=== PATIENT | male | born 1945 | race Caucasian/White ===

== ENCOUNTER 2017-09-11 07:30 | Inpatient (IN) | payer MEDICARE ==
[2017-09-12] MEDS ORDERED: fentaNYL 100 MCG/2 ML SDV ONE (07:33)
[2017-09-12] MEDS ORDERED: Propofol 200 MG/20 ML SDV ONE ×2 (07:33→13:02)
[2017-09-12] MEDS ORDERED: Midazolam 1 MG/ML 2 ML SDV ONE (07:33)
[2017-09-12] MEDS ORDERED: Gabapentin 300 MG Cap PO ONE (09:30)
[2017-09-12] MEDS ORDERED: Scopolamine 1.5 MG Transdermal Patch TOP SCH (09:30)
[2017-09-12] MEDS ORDERED: Gentamicin 40 MG/ML 2 ML Vial ONE (09:42)
[2017-09-12] MEDS ORDERED: Povidone-Iodine 10% Soln 118.25 ML Bottle ONE (09:43)
[2017-09-12] MEDS ORDERED: Lactated Ringers 1,000 ML IV SCH (10:00)
[2017-09-12] MEDS ORDERED: ceFAZolin 2 GM in Sodium Chloride 0.9% 50 ML IV ONE (10:00)
[2017-09-12] MEDS ORDERED: Ketamine 500 MG/5 ML MDV IV ONE (10:45)
[2017-09-12] MEDS ORDERED: Tranexamic Acid 1,000 MG in Sodium Chloride 0.9% 50 ML IV SCH (10:45)
[2017-09-12] MEDS ORDERED: Ropivacaine 49.25 ML, Ketorolac 30 MG, EPINEPHrine 0.5 MG, cloNIDine 80 MCG, Sodium Chl... INJECT ONE ×5 (10:45)
[2017-09-12] MEDS ORDERED: fentaNYL 250 MCG/5 ML SDV ONE (11:53)
[2017-09-12] MEDS: Tranexamic Acid 920 MG in Sodium Chloride 0.9% 50 ML IV SCH ×2 (12:10→14:32)
[2017-09-12] MEDS ORDERED: Vancomycin 1 GM SDV ONE (12:15)
[2017-09-12] MEDS ORDERED: Ondansetron 4 MG/2 ML SDV ONE (13:02)
[2017-09-12] MEDS ORDERED: Dexamethasone 4 MG/ML SDV ONE (13:02)
[2017-09-12] MEDS ORDERED: Rocuronium 50 MG/5 ML Vial ONE (13:02)
[2017-09-12] MEDS ORDERED: Lactated Ringers 1,000 ML ONE (13:02)
[2017-09-12] MEDS ORDERED: Succinylcholine 200 MG/10 ML MDV ONE (13:02)
[2017-09-12] MEDS ORDERED: Neostigmine Methylsulfate 1 MG/ML 5 ML Syringe ONE (13:02)
[2017-09-12] MEDS ORDERED: Glycopyrrolate 0.2 MG/ML 5 ML MDV ONE (13:02)
[2017-09-12] MEDS ORDERED: oxyCODONE 5 MG Tab PO PRN ×2 (14:27→16:06)
[2017-09-12] MEDS ORDERED: Morphine 2 MG/ML Syringe IVPUSH PRN ×2 (14:27→16:06)
[2017-09-12] MEDS ORDERED: Ondansetron 4 MG/2 ML SDV IVPUSH PRN ×2 (14:27→16:06)
[2017-09-12] MEDS ORDERED: diphenhydrAMINE 50 MG/ML SDV IVPUSH PRN ×2 (14:27→16:06)
[2017-09-12] MEDS ORDERED: Zolpidem 5 MG Tab PO PRN ×2 (14:27→16:06)
[2017-09-12] MEDS ORDERED: traMADol 50 MG Tab PO PRN (14:27)
[2017-09-12] MEDS ORDERED: Sennosides 8.6 MG Tab PO PRN ×2 (14:27→16:06)
[2017-09-12] MEDS ORDERED: Magnesium Hydroxide 400 MG/5 ML Susp 30 ML Cup PO PRN ×2 (14:27→16:06)
[2017-09-12] MEDS ORDERED: Naloxone 0.4 MG/ML SDV IVPUSH PRN ×2 (14:27→16:06)
[2017-09-12] MEDS ORDERED: Bisacodyl 5 MG Tab PO PRN ×2 (14:27→16:06)
[2017-09-12] MEDS ORDERED: Ketorolac 30 MG/ML SDV IVPUSH PRN (14:27)
[2017-09-12] MEDS ORDERED: Aluminum Hydroxide/Magnesium Hydroxide/Simethicone Susp 30 ML Cup PO PRN ×2 (14:27→16:06)
[2017-09-12] MEDS ORDERED: ceFAZolin 2 GM in Sodium Chloride 0.9% 50 ML IV SCH (14:30)
[2017-09-12] MEDS ORDERED: fentaNYL 100 MCG/2 ML SDV IVPUSH ONE (14:34)
[2017-09-12] MEDS ORDERED: Acetaminophen 1,000 MG in Premix Bag 1 BAG IV ONE (14:45)
[2017-09-12] MEDS ORDERED: hydrOXYzine HCl 100 MG/2 ML SDV IM ONE (14:52)
[2017-09-12] MEDS ORDERED: Diazepam 5 MG Tab PO PRN (16:56)
[2017-09-12] MEDS: ceFAZolin 2 GM in Sodium Chloride 0.9% 50 ML IV SCH (17:05)
--- NOTE | 2017-09-12 18:38 | OR ---
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 PROCEDURE: 1. Anterior and posterior open arthrotomy with extensive synovectomy. 2. Polyethylene exchange. BOTTLING SUPERVISOR: VIDHI Gillis. ANESTHESIA: General endotracheal intubation. FLUIDS: Lactated Ringer solution. ESTIMATED BLOOD LOSS: 100 mL. COMPLICATION: None. SPECIMEN: None. DISCHARGE DISPOSITION: Stable to PACU. INDICATIONS FOR PROCEDURE: The patient is well known to me, as we previously performed a laminectomy. He had previously had an infected right knee that ended with a revision after spacing. This was done in [place] by Dr. Zhang. He had been through years of physical therapy and was having problems with pain and limited range of motion. Risks and benefits of the procedure were explained to the patient. Informed consent was obtained. DETAILS OF PROCEDURE: The patient was seen preoperatively by myself and the Anesthesia Staff in the preoperative holding area where the operative site was marked. He was brought to the operative suite by the anesthesia staff where general anesthesia was administered because spinal could not be obtained. The right lower extremity had a well-padded tourniquet placed. The right lower extremity was then prepped and draped in a sterile manner. Time-out was called identifying the correct patient, correct procedure, correct site, and antibiotics had been with appropriate period of time. The right lower extremity was then exsanguinated. Tourniquet was raised to 300 mmHg for 88 minutes and let down prior to final polyethylene placement. The same midline incision was made, except that extended proximally for another 5 cm and carried down to the deep fascia. It took a great deal of time to preserve the soft tissue and envelope of the subcutaneous tissue because a limited skin available and very thin subcutaneous tissue. We then made a medial parapatellar arthrotomy through the previous medial parapatellar arthrotomy. Over 1 hour and 45 minutes were spent performing the anterior-posterior synovectomy. I also removed extensive bone osteophytes. This improved his range of motion significantly. However, he was still tight in the posterior lateral corner and I was unable to release this any further. I used osteotomes as well as Kerrison rongeurs in order to remove some of the bone from the soft tissue. The patellar polyethylene was nearly covered by eschar and this was cleaned up extensively. After the synovectomy was performed, I did the polyethylene trial. We did the polyethylene trial twice, and each time I went back to trial, released more of the posterior lateral corner. After accomplishing everything that we could, we irrigated with saline, applied Betadine irrigation, let that sit and then rest again. Then, we placed our final 10 x 75 mm anterior stabilized Vanguard polyethylene. We then irrigated again and then placed 2 g of vancomycin in the joint which was in powder form. I then closed the two #5 Ethibond for the arthrotomy and the then arthrotomy was then closed with #2 Stratafix, followed by a 3-0 Stratafix, followed by skin sandip, followed by sterile dressing. We did use the Aquamantys unit extensively during the case to control any bleeding due to the amount of scar tissue that was removed. The patient was then taken to the PACU in stable condition. Demetrio Cantrell DO /[id number]
[2017-09-12] MEDS: VERIFY SCOPOLAMINE PATCH TOP SCH (19:41)
[2017-09-12] MEDS ORDERED: Docusate Sodium 100 MG Cap PO SCH (21:00)
[2017-09-12] MEDS: Docusate Sodium 100 MG Cap PO SCH (21:57)
[2017-09-12] MEDS: traMADol 50 MG Tab PO PRN (22:17)
[2017-09-13] MEDS: ceFAZolin 2 GM in Sodium Chloride 0.9% 50 ML IV SCH ×2 (01:56→10:17)
[2017-09-13] MEDS: Ketorolac 30 MG/ML SDV IVPUSH PRN ×3 (01:56→17:05)
[2017-09-13] MEDS: traMADol 50 MG Tab PO PRN ×4 (04:52→23:17)
[2017-09-13] MEDS: VERIFY SCOPOLAMINE PATCH TOP SCH (09:24)
--- NOTE | 2017-09-13 09:40 | CR ---
Knee 1V or 2V Rt FINDINGS: The patient is status post knee arthroplasty. The prosthetic components appear well-aligned and seated. There is a small amount of air and fluid within the joint space. IMPRESSION: Status post knee arthroplasty without evidence for complication.
[2017-09-13] MEDS: Sodium Chloride 0.9% 10 ML Syringe FLUSH SCH (10:00)
[2017-09-13] MEDS: Aspirin 325 MG Tab.EC PO SCH (10:15)
[2017-09-13] MEDS: Docusate Sodium 100 MG Cap PO SCH ×2 (10:15→20:04)
[2017-09-13] MEDS ORDERED: Acetaminophen/oxyCODONE 325-5 MG Tab PO PRN ×2 (14:27)
[2017-09-13] MEDS ORDERED: Aspirin 325 MG Tab.EC PO SCH (14:27)
[2017-09-14] MEDS: Ketorolac 30 MG/ML SDV IVPUSH PRN ×2 (01:24→08:54)
[2017-09-14 04:47] VITALS: BP 130/62
[2017-09-14] MEDS: traMADol 50 MG Tab PO PRN (08:56)
[2017-09-14] MEDS: Docusate Sodium 100 MG Cap PO SCH (08:56)
[2017-09-14] MEDS: Aspirin 325 MG Tab.EC PO SCH (08:57)
[2017-09-14] MEDS: VERIFY SCOPOLAMINE PATCH TOP SCH (08:57)
[2017-09-14] MEDS: Sodium Chloride 0.9% 10 ML Syringe FLUSH SCH (09:59)
--- NOTE | 2017-09-20 10:06 | PCM.DCSUM1 ---
Discharge Summary - Hospital Course Free Text/Narrative:: Patient is status postop day 1 of the right knee revision. He is doing very well. He is ambulated without any difficulties. Patient's pain is under control with oral pain medication. He continues to work with PT OT for strengthening. - Discharge Data Discharge Date: 09/14/17 Discharge Disposition: Home, Self-Care 01 Condition: Good - Patient Summary/Data Consults: Consultations 09/12/17 14:27 OT Evaluation and Treatment [CONS] Routine Please Evaluate and Treat. OT Reason for Consult: Strengthening This query below is only for informational purposes and is not editable. PT Evaluation and Treatment [CONS] Routine Please Evaluate and Treat. PT Reason for Consult: Strengthening This query below is only for informational purposes and is not editable. - Patient Instructions Diet: Usual Diet as Tolerated Activity: Apply Ice, As Tolerated Driving: Do Not Drive Showering/Bathing: May Shower, No Tub Bathing/Swimming Wound/Incision Care: Keep Operative Site/Wound Site Clean and Dry, Change Dressing Daily Notify Provider of: Fever, Increased Pain, Swelling and Redness, Drainage, Nausea and/or Vomiting - Discharge Plan Prescriptions/Med Rec: Acetaminophen/oxyCODONE [Percocet 325-5 MG] 21 tab PO Q6HR #90 tablet Home Medications: Home Meds Acetaminophen/oxyCODONE [Percocet 325-5 MG] 21 tab PO Q6HR #90 tablet 09/14/17 [ Rx] Referrals: Patt Carolina, [employer]ABILITY ENGINEER [Nurse Practitioner] - (1 month follow up) - Discharge Summary/Plan Comment DC Time >30 min.: Yes Discharge Summary/Plan Comment: Patient will be discharged today. He will go home with . We'll set up physical therapy in an outpatient setting. He will continue to work on strengthening. He'll follow-up with orthopedics in 3 weeks. He'll notify us if he has any issues in the meantime. - Patient Data Vitals - Most Recent: Last Vital Signs Temp 37.3 C 09/14/17 04:00 Pulse 61 09/14/17 04:00 Resp 14 09/14/17 04:00 BP 130/62 09/14/17 04:00 Pulse Ox 94 L 09/14/17 04:00 Weight - Most Recent: 199 lb 4.766 oz Med Orders - Current: Current Medications Discontinued Medications Al Hydroxide/Mg Hydroxide (Mag-Al Plus) 30 ml PO Q4H PRN PRN Reason: Constipation Al Hydroxide/Mg Hydroxide (Mag-Al Plus) 30 ml PO Q4H PRN PRN Reason: Constipation Aspirin (Ecotrin) 325 mg PO DAILY [facility] Aspirin (Ecotrin) 325 mg PO DAILY [facility] Last Admin: 09/14/17 08:57 Dose: 325 mg Bisacodyl (Dulcolax) 10 mg PO DAILY PRN PRN Reason: Constipation Bisacodyl (Dulcolax) 10 mg PO DAILY PRN PRN Reason: Constipation Ropivacaine 49.25 ml/Ketorolac Tromethamine 30 mg/Epinephrine HCl 0.5 mg/ Clonidine HCl 80 mcg/ Sodium Chloride 48.45 ml 0 ml INJECT ONETIME ONE Stop: 09/12/17 10:46 Last Admin: 09/12/17 12:51 Dose: 50 ml Dexamethasone (Dexamethasone) Confirm Administered Dose 4 mg .ROUTE .STK-MED ONE Stop: 09/12/17 13:03 Diazepam (Valium) 5 mg IVPUSH Q6H PRN PRN Reason: Spasms Diazepam (Valium) 5 mg IVPUSH Q6H PRN PRN Reason: Spasms Diazepam (Valium.) 5 mg PO Q6H PRN PRN Reason: Spasms Diphenhydramine HCl (Benadryl) 25 mg IVPUSH Q4H PRN PRN Reason: Itching Diphenhydramine HCl (Benadryl) 25 mg IVPUSH Q4H PRN PRN Reason: Itching Docusate Sodium (Colace) 100 mg PO BID [facility] Docusate Sodium (Colace) 100 mg PO BID [facility] Last Admin: 09/14/17 08:56 Dose: 100 mg Fentanyl (Sublimaze) Confirm Administered Dose 100 mcg .ROUTE .STK-MED ONE Stop: 09/12/17 07:34 Fentanyl (Sublimaze) Confirm Administered Dose 250 mcg .ROUTE .STK-MED ONE Stop: 09/12/17 11:54 Fentanyl (Sublimaze) 100 mcg IVPUSH ONETIME ONE Stop: 09/12/17 14:35 Last Admin: 09/12/17 14:45 Dose: 100 mcg Gabapentin (Neurontin) 300 mg PO ONETIME ONE Stop: 09/12/17 09:31 Last Admin: 09/12/17 10:11 Dose: 300 mg Gentamicin Sulfate (Gentamicin) Confirm Administered Dose 240 mg .ROUTE .STK- MED ONE Stop: 09/12/17 09:43 Last Admin: 09/12/17 12:35 Dose: 240 mg Glycopyrrolate (Robinul) Confirm Administered Dose 1 mg .ROUTE .STK-MED ONE Stop: 09/12/17 13:03 Hydroxyzine HCl (Vistaril) 75 mg IM ONETIME ONE Stop: 09/12/17 14:53 Last Admin: 09/12/17 14:58 Dose: 75 mg Cefazolin Sodium 2 gm/ Sodium (Chloride) 50 mls @ 100 mls/hr IV ONETIME ONE Stop: 09/12/17 10:29 Last Admin: 09/12/17 11:15 Dose: 100 mls/hr Lactated Ringer's (Ringers, Lactated) 1,000 mls @ 0 mls/hr IV ASDIRECTED [facility] PRN Reason: KVO Last Admin: 09/12/17 10:13 Dose: 25 mls/hr Tranexamic Acid 920 mg/ Sodium (Chloride) 59.2 mls @ 236.8 mls/hr IV Q2H [facility] Stop: 09/12/17 12:59 Last Admin: 09/12/17 14:32 Dose: 236.8 mls/hr Lactated Ringer's (Ringers, Lactated) Confirm Administered Dose 1,000 mls @ as directed .ROUTE .STK-MED ONE Stop: 09/12/17 13:03 Acetaminophen 1,000 mg/ Premix 100 mls @ 400 mls/hr IV NOW ONE Stop: 09/12/17 14:59 Last Admin: 09/12/17 14:46 Dose: 400 mls/hr Cefazolin Sodium 2 gm/ Sodium (Chloride) 50 mls @ 100 mls/hr IV Q8H [facility] Stop: 09/13/17 06:59 Last Admin: 09/12/17 19:15 Dose: Not Given Cefazolin Sodium 2 gm/ Sodium (Chloride) 50 mls @ 100 mls/hr IV Q8H [facility] Stop: 09/13/17 10:29 Last Admin: 09/13/17 10:17 Dose: 100 mls/hr Ketamine HCl (Ketalar) 39 mg IV ONETIME ONE Stop: 09/12/17 10:46 Last Admin: 09/12/17 19:14 Dose: Not Given Ketorolac Tromethamine (Toradol) 30 mg IVPUSH Q8H PRN PRN Reason: Pain Stop: 09/17/17 14:27 Ketorolac Tromethamine (Toradol) 30 mg IVPUSH Q8H PRN PRN Reason: Pain Stop: 09/17/17 14:27 Last Admin: 09/14/17 08:54 Dose: 30 mg Magnesium Hydroxide (Milk Of Magnesia) 30 ml PO BID PRN PRN Reason: Constipation Magnesium Hydroxide (Milk Of Magnesia) 30 ml PO BID PRN PRN Reason: Constipation Midazolam HCl (Versed 1 Mg/Ml) Confirm Administered Dose 2 mg .ROUTE .STK-MED ONE Stop: 09/12/17 07:34 Morphine Sulfate (Morphine) 2 mg IVPUSH Q2H PRN PRN Reason: Pain Morphine Sulfate (Morphine) 2 mg IVPUSH Q2H PRN PRN Reason: Pain Last Admin: 09/12/17 16:53 Dose: 2 mg Naloxone HCl (Narcan) 0.1 mg IVPUSH ONETIME PRN PRN Reason: Oversedation Naloxone HCl (Narcan) 0.1 mg IVPUSH ONETIME PRN PRN Reason: Oversedation Neostigmine Methylsulfate (Neostigmine) Confirm Administered Dose 5 mg .ROUTE .STK-MED ONE Stop: 09/12/17 13:03 Verify Scopolamine (Patch) 0 each TOP DAILY [facility] Last Admin: 09/14/17 08:57 Dose: Not Given Ondansetron HCl (Zofran) Confirm Administered Dose 4 mg .ROUTE .STK-MED ONE Stop: 09/12/17 13:03 Ondansetron HCl (Zofran) 8 mg IVPUSH Q4H PRN PRN Reason: Nausea/Vomiting Ondansetron HCl (Zofran) 8 mg IVPUSH Q4H PRN PRN Reason: Nausea/Vomiting Oxycodone HCl (Oxycodone) 10 mg PO Q4H PRN PRN Reason: Pain Stop: 09/13/17 14:27 Oxycodone HCl (Oxycodone) 10 mg PO Q4H PRN PRN Reason: Pain Stop: 09/13/17 14:27 Oxycodone/Acetaminophen (Percocet 325-5 Mg) 2 tab PO Q4H PRN PRN Reason: Pain Oxycodone/Acetaminophen (Percocet 325-5 Mg) 2 tab PO Q4H PRN PRN Reason: Pain Povidone Iodine (Betadine 10% Soln) Confirm Administered Dose 1 ml .ROUTE .STK- MED ONE Stop: 09/12/17 09:44 Last Admin: 09/12/17 12:34 Dose: 30 ml Propofol (Diprivan 20 Ml) Confirm Administered Dose 200 mg .ROUTE .STK-MED ONE Stop: 09/12/17 07:34 Propofol (Diprivan 20 Ml) Confirm Administered Dose 200 mg .ROUTE .STK-MED ONE Stop: 09/12/17 13:03 Rocuronium [place] (Zemuron) Confirm Administered Dose 50 mg .ROUTE .STK-MED ONE Stop: 09/12/17 13:03 Scopolamine (Transderm-Scop) 1.5 mg TOP Q72H [facility] Stop: 09/15/17 07:30 Last Admin: 09/12/17 10:11 Dose: 1.5 mg Senna (Senna) 8.6 mg PO BID PRN PRN Reason: Constipation Senna (Senna) 8.6 mg PO BID PRN PRN Reason: Constipation Sodium Chloride (Saline Flush) 10 ml FLUSH DAILY [facility] Last Admin: 09/14/17 09:59 Dose: Not Given Succinylcholine Chloride (Quelicin) Confirm Administered Dose 200 mg .ROUTE .STK -MED ONE Stop: 09/12/17 13:03 Tramadol HCl (Ultram) 100 mg PO Q6H PRN PRN Reason: Pain Tramadol HCl (Ultram) 100 mg PO Q6H PRN PRN Reason: Pain Last Admin: 09/14/17 08:56 Dose: 100 mg Vancomycin HCl (Vancomycin) Confirm Administered Dose 2 gm .ROUTE .STK-MED ONE Stop: 09/12/17 12:16 Last Admin: 09/12/17 13:35 Dose: 2 gm Zolpidem Tartrate (Ambien) 5 mg PO BEDTIME PRN PRN Reason: Sleep Zolpidem Tartrate (Ambien) 5 mg PO BEDTIME PRN PRN Reason: Sleep *Q Meaningful Use (DIS) - VTE *Q VTE Criteria *Q: - Stroke *Q Stroke Criteria *Q: - AMI *Q AMI Criteria *Q:
--- NOTE | 2017-09-20 12:39 | PCM.PN ---
- General Info Date of Service: 09/13/17 Admission Dx/Problem (Free Text): patient is status postop day 1 of left knee revision. He is doing very well. Patient is having minimal pain at this time. He continues to work with physical therapy. His pain is under control with oral pain medication. Functional Status: Reports: Pain Controlled, Tolerating Diet, Ambulating, Urinating - Patient Data Vitals - Most Recent: Last Vital Signs Temp 37.3 C 09/14/17 04:00 Pulse 61 09/14/17 04:00 Resp 14 09/14/17 04:00 BP 130/62 09/14/17 04:00 Pulse Ox 94 L 09/14/17 04:00 Weight - Most Recent: 199 lb 4.766 oz Med Orders - Current: Current Medications Discontinued Medications Al Hydroxide/Mg Hydroxide (Mag-Al Plus) 30 ml PO Q4H PRN PRN Reason: Constipation Al Hydroxide/Mg Hydroxide (Mag-Al Plus) 30 ml PO Q4H PRN PRN Reason: Constipation Aspirin (Ecotrin) 325 mg PO DAILY [facility] Aspirin (Ecotrin) 325 mg PO DAILY [facility] Last Admin: 09/14/17 08:57 Dose: 325 mg Bisacodyl (Dulcolax) 10 mg PO DAILY PRN PRN Reason: Constipation Bisacodyl (Dulcolax) 10 mg PO DAILY PRN PRN Reason: Constipation Ropivacaine 49.25 ml/Ketorolac Tromethamine 30 mg/Epinephrine HCl 0.5 mg/ Clonidine HCl 80 mcg/ Sodium Chloride 48.45 ml 0 ml INJECT ONETIME ONE Stop: 09/12/17 10:46 Last Admin: 09/12/17 12:51 Dose: 50 ml Dexamethasone (Dexamethasone) Confirm Administered Dose 4 mg .ROUTE .STK-MED ONE Stop: 09/12/17 13:03 Diazepam (Valium) 5 mg IVPUSH Q6H PRN PRN Reason: Spasms Diazepam (Valium) 5 mg IVPUSH Q6H PRN PRN Reason: Spasms Diazepam (Valium.) 5 mg PO Q6H PRN PRN Reason: Spasms Diphenhydramine HCl (Benadryl) 25 mg IVPUSH Q4H PRN PRN Reason: Itching Diphenhydramine HCl (Benadryl) 25 mg IVPUSH Q4H PRN PRN Reason: Itching Docusate Sodium (Colace) 100 mg PO BID [facility] Docusate Sodium (Colace) 100 mg PO BID [facility] Last Admin: 09/14/17 08:56 Dose: 100 mg Fentanyl (Sublimaze) Confirm Administered Dose 100 mcg .ROUTE .STK-MED ONE Stop: 09/12/17 07:34 Fentanyl (Sublimaze) Confirm Administered Dose 250 mcg .ROUTE .STK-MED ONE Stop: 09/12/17 11:54 Fentanyl (Sublimaze) 100 mcg IVPUSH ONETIME ONE Stop: 09/12/17 14:35 Last Admin: 09/12/17 14:45 Dose: 100 mcg Gabapentin (Neurontin) 300 mg PO ONETIME ONE Stop: 09/12/17 09:31 Last Admin: 09/12/17 10:11 Dose: 300 mg Gentamicin Sulfate (Gentamicin) Confirm Administered Dose 240 mg .ROUTE .STK- MED ONE Stop: 09/12/17 09:43 Last Admin: 09/12/17 12:35 Dose: 240 mg Glycopyrrolate (Robinul) Confirm Administered Dose 1 mg .ROUTE .STK-MED ONE Stop: 09/12/17 13:03 Hydroxyzine HCl (Vistaril) 75 mg IM ONETIME ONE Stop: 09/12/17 14:53 Last Admin: 09/12/17 14:58 Dose: 75 mg Cefazolin Sodium 2 gm/ Sodium (Chloride) 50 mls @ 100 mls/hr IV ONETIME ONE Stop: 09/12/17 10:29 Last Admin: 09/12/17 11:15 Dose: 100 mls/hr Lactated Ringer's (Ringers, Lactated) 1,000 mls @ 0 mls/hr IV ASDIRECTED [facility] PRN Reason: KVO Last Admin: 09/12/17 10:13 Dose: 25 mls/hr Tranexamic Acid 920 mg/ Sodium (Chloride) 59.2 mls @ 236.8 mls/hr IV Q2H [facility] Stop: 09/12/17 12:59 Last Admin: 09/12/17 14:32 Dose: 236.8 mls/hr Lactated Ringer's (Ringers, Lactated) Confirm Administered Dose 1,000 mls @ as directed .ROUTE .STK-MED ONE Stop: 09/12/17 13:03 Acetaminophen 1,000 mg/ Premix 100 mls @ 400 mls/hr IV NOW ONE Stop: 09/12/17 14:59 Last Admin: 09/12/17 14:46 Dose: 400 mls/hr Cefazolin Sodium 2 gm/ Sodium (Chloride) 50 mls @ 100 mls/hr IV Q8H [facility] Stop: 09/13/17 06:59 Last Admin: 09/12/17 19:15 Dose: Not Given Cefazolin Sodium 2 gm/ Sodium (Chloride) 50 mls @ 100 mls/hr IV Q8H [facility] Stop: 09/13/17 10:29 Last Admin: 09/13/17 10:17 Dose: 100 mls/hr Ketamine HCl (Ketalar) 39 mg IV ONETIME ONE Stop: 09/12/17 10:46 Last Admin: 09/12/17 19:14 Dose: Not Given Ketorolac Tromethamine (Toradol) 30 mg IVPUSH Q8H PRN PRN Reason: Pain Stop: 09/17/17 14:27 Ketorolac Tromethamine (Toradol) 30 mg IVPUSH Q8H PRN PRN Reason: Pain Stop: 09/17/17 14:27 Last Admin: 09/14/17 08:54 Dose: 30 mg Magnesium Hydroxide (Milk Of Magnesia) 30 ml PO BID PRN PRN Reason: Constipation Magnesium Hydroxide (Milk Of Magnesia) 30 ml PO BID PRN PRN Reason: Constipation Midazolam HCl (Versed 1 Mg/Ml) Confirm Administered Dose 2 mg .ROUTE .STK-MED ONE Stop: 09/12/17 07:34 Morphine Sulfate (Morphine) 2 mg IVPUSH Q2H PRN PRN Reason: Pain Morphine Sulfate (Morphine) 2 mg IVPUSH Q2H PRN PRN Reason: Pain Last Admin: 09/12/17 16:53 Dose: 2 mg Naloxone HCl (Narcan) 0.1 mg IVPUSH ONETIME PRN PRN Reason: Oversedation Naloxone HCl (Narcan) 0.1 mg IVPUSH ONETIME PRN PRN Reason: Oversedation Neostigmine Methylsulfate (Neostigmine) Confirm Administered Dose 5 mg .ROUTE .STK-MED ONE Stop: 09/12/17 13:03 Verify Scopolamine (Patch) 0 each TOP DAILY [facility] Last Admin: 09/14/17 08:57 Dose: Not Given Ondansetron HCl (Zofran) Confirm Administered Dose 4 mg .ROUTE .STK-MED ONE Stop: 09/12/17 13:03 Ondansetron HCl (Zofran) 8 mg IVPUSH Q4H PRN PRN Reason: Nausea/Vomiting Ondansetron HCl (Zofran) 8 mg IVPUSH Q4H PRN PRN Reason: Nausea/Vomiting Oxycodone HCl (Oxycodone) 10 mg PO Q4H PRN PRN Reason: Pain Stop: 09/13/17 14:27 Oxycodone HCl (Oxycodone) 10 mg PO Q4H PRN PRN Reason: Pain Stop: 09/13/17 14:27 Oxycodone/Acetaminophen (Percocet 325-5 Mg) 2 tab PO Q4H PRN PRN Reason: Pain Oxycodone/Acetaminophen (Percocet 325-5 Mg) 2 tab PO Q4H PRN PRN Reason: Pain Povidone Iodine (Betadine 10% Soln) Confirm Administered Dose 1 ml .ROUTE .STK- MED ONE Stop: 09/12/17 09:44 Last Admin: 09/12/17 12:34 Dose: 30 ml Propofol (Diprivan 20 Ml) Confirm Administered Dose 200 mg .ROUTE .STK-MED ONE Stop: 09/12/17 07:34 Propofol (Diprivan 20 Ml) Confirm Administered Dose 200 mg .ROUTE .STK-MED ONE Stop: 09/12/17 13:03 Rocuronium [place] (Zemuron) Confirm Administered Dose 50 mg .ROUTE .STK-MED ONE Stop: 09/12/17 13:03 Scopolamine (Transderm-Scop) 1.5 mg TOP Q72H [facility] Stop: 09/15/17 07:30 Last Admin: 09/12/17 10:11 Dose: 1.5 mg Senna (Senna) 8.6 mg PO BID PRN PRN Reason: Constipation Senna (Senna) 8.6 mg PO BID PRN PRN Reason: Constipation Sodium Chloride (Saline Flush) 10 ml FLUSH DAILY [facility] Last Admin: 09/14/17 09:59 Dose: Not Given Succinylcholine Chloride (Quelicin) Confirm Administered Dose 200 mg .ROUTE .STK -MED ONE Stop: 09/12/17 13:03 Tramadol HCl (Ultram) 100 mg PO Q6H PRN PRN Reason: Pain Tramadol HCl (Ultram) 100 mg PO Q6H PRN PRN Reason: Pain Last Admin: 09/14/17 08:56 Dose: 100 mg Vancomycin HCl (Vancomycin) Confirm Administered Dose 2 gm .ROUTE .STK-MED ONE Stop: 09/12/17 12:16 Last Admin: 09/12/17 13:35 Dose: 2 gm Zolpidem Tartrate (Ambien) 5 mg PO BEDTIME PRN PRN Reason: Sleep Zolpidem Tartrate (Ambien) 5 mg PO BEDTIME PRN PRN Reason: Sleep - Exam General: Alert, Oriented Extremities: Normal Inspection, Non-Tender, No Pedal Edema, Normal Capillary Refill Peripheral Pulses: 2+: Dorsalis Pedis (L), Dorsalis Pedis (R) Skin: Warm, Dry, Intact Wound/Incisions: Healing Well, Dressing Dry and Intact Neurological: No New Focal Deficit, Normal Gait Psy/Mental Status: Alert - Problem List Review Problem List Initiated/Reviewed/Updated: Yes - Plan Plan:: Patient will be here for one more day. He'll continue to work on oral pain medication. He will continue to work with PT OT for strengthening. We'll plan to discharge tomorrow.
== END 2017-09-14 10:57 | disposition home or self-care (01) | DRG 468 ==
LOC: EDSTATUS 09-12 07:30 → JP.SDS 09-12 09:26 → JP.SDSSCHI 09-12 09:26 → JP.ICU 09-12 15:45
PROVIDERS: ADMIT Orthopaedic Surgery; ATTEND Orthopaedic Surgery
PROC: 0SBC0ZZ Excision of Right Knee Joint, Open Approach (ICD-10-PCS; principal; 2017-09-12)
PROC: 0SWC0JZ Revision of Synthetic Substitute in Right Knee Joint, Open Approach (ICD-10-PCS; 2017-09-12)
DX: M24.661 Ankylosis, right knee (principal); M17.11 Unilateral primary osteoarthritis, right knee; M54.9 Dorsalgia, unspecified; G89.29 Other chronic pain; Z86.718 Personal history of other venous thrombosis and embolism; H54.7 Unspecified visual loss; Z91.040 Latex allergy status; Z88.8 Allergy status to other drugs, medicaments and biological substances
CPT/HCPCS: 27486; 36415; 73560-26-RT; 73560-RT; 80053; 85025; 86850; 86900; 86901; 94762; 97110-GP; 97116-GP; 97162-GP; A9270-GY; C1776; J0131; J0171; J0330; J0690; J0735; J1100; J1580; J1885; J2250; J2270; J2405; J2704; J2710; J2795; J3010; J3370; J3410; J7050; J7120

== ENCOUNTER 2017-09-16 11:11 | Emergency (ER) | payer MEDICARE ==
[2017-09-16 11:41] VITALS: BP 152/70
--- NOTE | 2017-09-16 12:08 | EDM.PDOC ---
ED HPI GENERAL MEDICAL PROBLEM - General Chief Complaint: Skin Complaint Stated Complaint: RASH ALL OVER Time Seen by Provider: 09/16/17 11:31 Source of Information: Reports: Patient History Limitations: Reports: No Limitations - History of Present Illness INITIAL COMMENTS - FREE TEXT/NARRATIVE: 72 yo male presents to ER with skin irritation following surgery on right knee 3 days ago. pt states at when he left hospital mild irritation in a band pattern around upper right thigh and left forearm. Irritation has worsened since leaving hospital. mild stinging pain. mild itch that is controlled with oral Benadryl. This has happened following previous surgery to back. Previously it was thought that reaction was latex based however he was identified as latex allergy with this surgery. Left Arm Pain Score (Numeric/FACES): 1 - Related Data Allergies Allergy/AdvReac Type Severity Reaction Status Date / Time latex Allergy Other Verified 09/16/17 11:47 sulfamethoxazole Allergy Rash Verified 09/16/17 11:47 trimethoprim Allergy Cannot Verified 09/16/17 11:47 Remember Home Meds: Home Meds Acetaminophen/oxyCODONE [Percocet 325-5 MG] 21 tab PO Q6HR #90 tablet 09/14/17 [ Rx] Past Medical History HEENT History: Reports: Cataract, Impaired Vision Cardiovascular History: Reports: Blood Clots/VTE/DVT Respiratory History: Reports: PE Genitourinary History: Reports: Other (See Below) Other Genitourinary History: kidney function abnormal but states no kidney disease. Musculoskeletal History: Reports: Back Pain, Chronic, Gout, Osteoarthritis, Other (See Below) Other Musculoskeletal History: R knee pain Neurological History: Reports: None Hematologic History: Reports: Blood Transfusion(s) Dermatologic History: Reports: Other (See Below) Other Dermatologic History: rash - Infectious Disease History Infectious Disease History: Reports: Chicken Pox, Measles, Mumps - Past Surgical History HEENT Surgical History: Reports: Cataract Surgery, Eye Surgery, Tonsillectomy Cardiovascular Surgical History: Reports: None Respiratory Surgical History: Reports: None Male Surgical History: Reports: None Neurological Surgical History: Reports: Lumbar Spine Musculoskeletal Surgical History: Reports: Arthroscopic Knee, Knee Replacement Other Musculoskeletal Surgeries/Procedures:: partial knee on left knee Dermatological Surgical History: Reports: None Social & Family History - Family History Hematologic: Reports: Other (See Below) - Tobacco Use Smoking Status *Q: Unknown Ever Smoked Second Hand Smoke Exposure: No - Caffeine Use Caffeine Use: Reports: None - Recreational Drug Use Recreational Drug Use: No ED ROS GENERAL - Review of Systems Review Of Systems: See Below Constitutional: Denies: Fever, Chills Respiratory: Denies: Shortness of Breath Cardiovascular: Denies: Chest Pain ED EXAM, SKIN/RASH Exam: See Below Exam Limited By: No Limitations General Appearance: Alert, WD/WN, No Apparent Distress Respiratory/Chest: No Respiratory Distress Skin: Warm, Dry, Intact, Rash Location, Skin: Upper Extremity, Left (mild erythema in pattern of square surrounding area where IV had been placed.), Lower Extremity, Right (4 cm severe erythema with surrounding moderate erythema in band around upper thigh. medial area is weeping with small vesicles. mild edema. ) Course - Vital Signs Last Recorded V/S: Last Vital Signs Temp 35.8 C 09/16/17 11:45 Pulse 67 09/16/17 11:45 Resp 16 09/16/17 11:45 BP 152/70 H 09/16/17 11:45 Pulse Ox 97 09/16/17 11:45 Departure - Departure Time of Disposition: 12:06 Disposition: Home, Self-Care 01 Condition: Good Clinical Impression: Contact dermatitis Qualifiers: Contact dermatitis type: allergic Contact dermatitis trigger: unspecified trigger Qualified Code(s): L23.9 - Allergic contact dermatitis, unspecified cause - Discharge Information Instructions: Contact Dermatitis Referrals: Iban Momin MD [Primary Care Provider] - Forms: ED Department Discharge Additional Instructions: wash area with warm soapy water and pat dry apply steroid cream to area of irritation twice daily until resolved observe for signs of infection: increase in pain or erythema, general ill feeling
== END 2017-09-16 12:42 | disposition home or self-care (01) ==
LOC: JP.ED 11:11
DX: L23.9 Allergic contact dermatitis, unspecified cause (principal); Z91.040 Latex allergy status; Z88.8 Allergy status to other drugs, medicaments and biological substances; Z88.2 Allergy status to sulfonamides
CPT/HCPCS: 99283

== ENCOUNTER 2018-04-04 06:28 | Day surgery (SDC) | payer MEDICARE ==
[2018-04-04] MEDS ORDERED: Sodium Chloride 0.9% 1,000 ML IV SCH (07:00)
[2018-04-04] MEDS ORDERED: Propofol 200 MG/20 ML SDV ONE (07:26)
[2018-04-04] MEDS ORDERED: Midazolam 1 MG/ML 2 ML SDV ONE (07:26)
[2018-04-04] MEDS ORDERED: fentaNYL 100 MCG/2 ML SDV ONE (07:26)
--- NOTE | 2018-04-04 09:11 | OR ---
DATE OF PROCEDURE: 04/04/2018 PROCEDURE: Colonoscopy. FINDINGS: 1. Ascending colon polyp, approximately 5 mm, completely removed using cold biopsy forceps. 2. Descending colon polyp, approximately 1 cm, completely removed using hot snare. PREOPERATIVE DIAGNOSIS: Family history of colorectal cancer. POSTOPERATIVE DIAGNOSIS: Family history of colorectal cancer. RISKS: Risks, benefits, alternatives, and limitations including, but not limited to infection, bleeding, and perforation were explained to the patient who wished to proceed. PROCEDURE IN DETAIL: The patient was placed in left lateral decubitus position. Digital rectal exam was performed without abnormality. The scope was introduced and advanced atraumatically to the ileocecal valve. The scope was brought back to the ascending, transverse, descending colon, and retroflexed. The aforementioned polyps were identified and completely removed. The patient did have some very mild diverticulosis. No other abnormalities were noted. No old or new blood. The patient tolerated the procedure well. Robe Banks MD /[id number]
[2018-04-04 10:36] VITALS: BP 139/89
== END 2018-04-04 10:39 | disposition home or self-care (01) ==
LOC: JP.SDS 06:28
PROVIDERS: ATTEND Surgery
DX: Z12.11 Encounter for screening for malignant neoplasm of colon (principal); D12.2 Benign neoplasm of ascending colon; D12.4 Benign neoplasm of descending colon; K57.30 Diverticulosis of large intestine without perforation or abscess without bleeding; I12.9 Hypertensive chronic kidney disease with stage 1 through stage 4 chronic kidney disease, or unspecified chronic kidney disease; N18.9 Chronic kidney disease, unspecified; Z80.0 Family history of malignant neoplasm of digestive organs; Z88.2 Allergy status to sulfonamides
CPT/HCPCS: 45380; 45385; J2250; J2704; J3010; J7040; 88305

== ENCOUNTER 2020-12-03 06:58 | Day surgery (SDC) | payer MEDICARE ==
[2020-12-03] MEDS: Sodium Chloride 0.9% 1,000 ML IV SCH (07:40)
[2020-12-03] MEDS ORDERED: Midazolam 1 MG/ML 2 ML SDV ONE (07:41)
[2020-12-03] MEDS ORDERED: fentaNYL 100 MCG/2 ML SDV ONE (07:41)
[2020-12-03] MEDS ORDERED: Propofol 200 MG/20 ML SDV ONE (07:41)
[2020-12-03 09:40] VITALS: BP 137/70
[2020-12-03 10:07] VITALS: PULSE 60
--- NOTE | 2020-12-03 10:10 | OR ---
DATE OF PROCEDURE: 12/03/2020 SURGEON: Robe Banks MD PROCEDURE: Colonoscopy. FINDINGS: 1. Diverticulosis, mild, limited to sigmoid colon. 2. Ascending colon polyp, approximately 5 mm, completely removed using hot snare wire device. 3. Sigmoid colon polyp, #1, approximately 5 mm, completely removed using cold biopsy forceps. 4. Sigmoid colon polyp #3, completely removed using cold biopsy forceps. COMPLICATIONS: None. [employer]: None. PREOPERATIVE DIAGNOSIS: Family history. POSTOPERATIVE DIAGNOSIS: Family history. RISKS: Risks, benefits, alternatives, and limitations including, but not limited to infection, bleeding, and perforation were explained to the patient along with false- positives and false-negatives. They wished to proceed. PROCEDURE IN DETAIL: The patient was placed in the left lateral decubitus position. Digital rectal exam was performed without abnormality. Scope was inserted, introduced, advanced atraumatically to the ileocecal valve. A photo was taken. The scope was brought back to the ascending, transverse, descending colon, and retroflexed. The aforementioned polyps were identified and completely removed. No evidence of old or new blood. Diverticulosis described as mild, limited to sigmoid colon without evidence of diverticulitis. Prep was acceptable, approximately 90% luminal surface could be seen. No abnormalities on retroflexion. The patient tolerated the procedure well. Robe Banks MD /[id number]
== END 2020-12-03 10:57 | disposition home or self-care (01) ==
LOC: JP.SDS 06:58
PROVIDERS: ATTEND Surgery
DX: Z12.11 Encounter for screening for malignant neoplasm of colon (principal); D12.5 Benign neoplasm of sigmoid colon; K57.30 Diverticulosis of large intestine without perforation or abscess without bleeding; I12.9 Hypertensive chronic kidney disease with stage 1 through stage 4 chronic kidney disease, or unspecified chronic kidney disease; N18.9 Chronic kidney disease, unspecified
CPT/HCPCS: 88305; J2250; J2704; J3010; J7030

== ENCOUNTER 2024-07-15 06:16 | Day surgery (SDC) | payer MEDICARE ==
[2024-07-15] MEDS: Sodium Chloride 0.9% 1,000 ML IV SCH (06:33)
[2024-07-15 06:48] LABS: HEMATOCRIT 39.8 % (38.4-49.7); HEMOGLOBIN 13.7 g/dL (12.9-16.9); MEAN CORPUSCULAR HEMOGLOBIN 30.5 pg (31.6-35.5); MEAN CORPUSCULAR HGB CONC 34.4 g/dL (31.6-35.5); MEAN CORPUSCULAR VOLUME 88.6 fL (81.4-99.0); RED BLOOD CELL COUNT 4.49 M/uL (4.14-5.76); WHITE BLOOD CELL COUNT,WBC 5.7 K/uL (3.2-11.0)
[2024-07-15] MEDS ORDERED: Glycopyrrolate 0.2 MG/ML 5 ML MDV ONE (06:56)
[2024-07-15] MEDS ORDERED: Rocuronium 50 MG/5 ML Vial ONE (06:56)
[2024-07-15] MEDS ORDERED: Dexamethasone 4 MG/ML SDV ONE (06:56)
[2024-07-15] MEDS ORDERED: Neostigmine Methylsulfate 10 MG/10 ML MDV ONE (06:56)
[2024-07-15] MEDS ORDERED: Ondansetron 4 MG/2 ML SDV ONE (06:56)
[2024-07-15] MEDS ORDERED: Propofol 200 MG/20 ML SDV ONE (06:56)
[2024-07-15] MEDS ORDERED: Succinylcholine 200 MG/10 ML MDV ONE (06:56)
[2024-07-15] MEDS ORDERED: fentaNYL 250 MCG/5 ML SDV ONE (06:58)
[2024-07-15 07:12] LABS: A/G RATIO 1.1 (1.2-2.2); ALANINE AMINOTRANSFERASE,ALT 20 U/L (12-78); ALKALINE PHOSPHATASE 96 U/L (46-116); ASPARTATE AMNIOTRANSFERASE,AST 24 U/L (15-37); BILIRUBIN TOTAL 0.9 mg/dL (0.2-1.0); BLOOD UREA NITROGEN,BUN 19 mg/dL (7-18); CALCIUM 8.8 mg/dL (8.5-10.1); CARBON DIOXIDE,CO2 27 mmol/L (21-32); CHLORIDE,CL 103 mmol/L (100-108); CREATININE 1.5 mg/dL (0.8-1.3); EST CRCL DRUG DOSING (CG) 43.11 mL/min; ESTIMATED GFR 47 mL/min (>60); GLUCOSE RANDOM 97 mg/dL (74-106); POTASSIUM,K 4.1 mmol/L (3.6-5.2); PROTEIN TOTAL,TP 7.5 g/dL (6.4-8.2); SODIUM,NA 138 mmol/L (140-148)
[2024-07-15 07:14] LABS: ANION GAP 12.1 mmol/L (5.0-14.0)
[2024-07-15] MEDS: ceFAZolin 2 GM in Premix Bag 1 BAG IV ONE (08:20)
[2024-07-15] MEDS: metroNIDAZOLE/Normal Saline 500 MG in Premix Bag 1 BAG IV ONE (08:21)
[2024-07-15] MEDS: Ropivacaine 40 ML, dexAMETHasone 8 MG, EPINEPHrine 0.4 MG, Sodium Chloride 0.9% 37.6 ML NERVRT SCH (08:31)
[2024-07-15] MEDS: Bupivacaine 0.5%/EPINEPHrine 1:200,000 50 ML MDV ONE (08:48)
[2024-07-15] MEDS ORDERED: Lactated Ringers 1,000 ML ONE (09:05)
[2024-07-15] MEDS: Acetaminophen/HYDROcodone 325-5 MG Tab PO PRN (10:58)
[2024-07-15 16:10] VITALS: BP 147/80; PULSE 78
== END 2024-07-15 16:00 | disposition home or self-care (01) ==
LOC: JP.SDS 06:16
PROVIDERS: ATTEND Surgery
DX: K40.30 Unilateral inguinal hernia, with obstruction, without gangrene, not specified as recurrent (principal); M10.9 Gout, unspecified; H91.93 Unspecified hearing loss, bilateral; E03.9 Hypothyroidism, unspecified; N18.31 Chronic kidney disease, stage 3a; Z79.899 Other long term (current) drug therapy
CPT/HCPCS: 36415; 49650; 80053; 85027; A9270; C1781; J0171; J0330; J0690; J1100; J1596; J1836; J2405; J2704; J2710; J2795; J3010; J3490; J7030; J7120

== ENCOUNTER 2025-09-17 13:14 | Inpatient (IN) | payer MEDICARE ==
[2025-09-17 15:04] LABS: BASE EXCESS VENOUS 2.4 mm/L; BICARBONATE,VENOUS 25.3 mmol/L; O2 SATURATION VENOUS 45.7; OXYHEMOGLOBIN 44.1 %; PCO2 VENOUS 34.8 mm/Hg; PH,VENOUS 7.475 (7.350-7.450); TOTAL HEMOGLOBIN 12.2 g/dL (13.5-18.0)
[2025-09-17 15:05] LABS: BASOPHILS ABSOLUTE AUTO 0.03 K/uL (0.00-0.10); BASOPHILS PERCENT AUTO 0.2 % (0.1-1.3); EOSINOPHILS ABSOLUTE AUTO 0.05 K/uL (0.00-0.40); EOSINOPHILS PERCENT AUTO 0.3 % (0.0-5.4); IMMATURE GRAN ABSOLUTE AUTO 0.11 K/uL (0.00-0.23); IMMATURE GRAN PERCENT AUTO 0.7 % (0.0-0.7); LYMPHOCYTES ABSOLUTE AUTO 0.52 K/uL (0.8-3.3); LYMPHOCYTES PERCENT AUTO 3.1 % (11.4-47.7); MONOCYTES ABSOLUTE AUTO 0.91 K/uL (0.20-0.90); MONOCYTES PERCENT AUTO 5.4 % (3.3-12.6); NEUTROPHILS ABSOLUTE AUTO 15.19 K/uL (1.0-7.6); NEUTROPHILS PERCENT AUTO 90.3 % (40.0-78.1); PLATELET COUNT,PLT 334 K/uL (130-375); RED BLOOD CELL COUNT 3.72 M/uL (4.14-5.76); WHITE BLOOD CELL COUNT,WBC 16.8 K/uL (3.2-11.0)
[2025-09-17 15:07] LABS: PO2 VENOUS 25.9 mm/Hg
[2025-09-17] MEDS: Levofloxacin/Dextrose 5%-Water 750 MG in Premix Bag 1 BAG IV ONE (15:11)
[2025-09-17 15:26] LABS: A/G RATIO 0.8 (1.2-2.2); ALANINE AMINOTRANSFERASE,ALT 19 U/L (12-78); ASPARTATE AMNIOTRANSFERASE,AST 24 U/L (15-37); BILIRUBIN TOTAL 0.8 mg/dL (0.2-1.0); BLOOD UREA NITROGEN,BUN 28 mg/dL (7-18); CARBON DIOXIDE,CO2 27 mmol/L (21-32); CHLORIDE,CL 97 mmol/L (100-108); CREATININE 2.1 mg/dL (0.8-1.3); EST CRCL DRUG DOSING (CG) 30.28 mL/min; ESTIMATED GFR 31 mL/min (>60); GLUCOSE RANDOM 107 mg/dL (74-106); POTASSIUM,K 5.0 mmol/L (3.6-5.2); PROTEIN TOTAL,TP 7.2 g/dL (6.4-8.2); SODIUM,NA 134 mmol/L (140-148)
[2025-09-17 15:30] LABS: TROPONIN I HIGH SENSITIVITY 7.6 pg/mL (<=60.3)
[2025-09-17 16:10] LABS: CORONAVIRUS COVID-19 NAA NEGATIVE (NEGATIVE); INFLUENZA A NAA NEGATIVE (NEGATIVE); INFLUENZA B NAA NEGATIVE (NEGATIVE); RESPIRATORY SYNCYTIAL VIR NAA NEGATIVE (NEGATIVE)
[2025-09-17 16:10] LABS: APPEARANCE,URINE CLOUDY (CLEAR); SQUAMOUS EPITHELIAL CELLS,UR RARE /HPF; UROTHELIAL CELLS,URINE NOT SEEN /HPF
[2025-09-17] MEDS: Acetaminophen 1,000 MG in Premix Bag 1 BAG IV PRN ×2 (19:42→23:48)
[2025-09-18] MEDS: Phenazopyridine 95 MG Tab PO SCH (00:24)
[2025-09-18 05:36] LABS: BASOPHILS ABSOLUTE AUTO 0.03 K/uL (0.00-0.10); BASOPHILS PERCENT AUTO 0.2 % (0.1-1.3); EOSINOPHILS ABSOLUTE AUTO 0.05 K/uL (0.00-0.40); EOSINOPHILS PERCENT AUTO 0.3 % (0.0-5.4); IMMATURE GRAN ABSOLUTE AUTO 0.12 K/uL (0.00-0.23); IMMATURE GRAN PERCENT AUTO 0.7 % (0.0-0.7); LYMPHOCYTES ABSOLUTE AUTO 0.70 K/uL (0.8-3.3); LYMPHOCYTES PERCENT AUTO 4.0 % (11.4-47.7); MONOCYTES ABSOLUTE AUTO 0.82 K/uL (0.20-0.90); MONOCYTES PERCENT AUTO 4.7 % (3.3-12.6); NEUTROPHILS ABSOLUTE AUTO 15.67 K/uL (1.0-7.6); NEUTROPHILS PERCENT AUTO 90.1 % (40.0-78.1); PLATELET COUNT,PLT 316 K/uL (130-375); RED BLOOD CELL COUNT 3.30 M/uL (4.14-5.76); WHITE BLOOD CELL COUNT,WBC 17.4 K/uL (3.2-11.0)
[2025-09-18 05:45] LABS: BLOOD UREA NITROGEN,BUN 29.0 mg/dL (7-18); CARBON DIOXIDE,CO2 26.0 mmol/L (21-32); CHLORIDE,CL 101.0 mmol/L (100-108); CREATININE 2.2 mg/dL (0.8-1.3); EST CRCL DRUG DOSING (CG) 28.9 mL/min; ESTIMATED GFR 29.0 mL/min (>60); GLUCOSE RANDOM 112.0 mg/dL (74-106); POTASSIUM,K 5.1 mmol/L (3.6-5.2); SODIUM,NA 135.0 mmol/L (140-148)
[2025-09-18] MEDS: Lactobacillus Rhamnosus GG (Probiotic) Cap PO SCH (08:11)
[2025-09-18] MEDS: Cholecalciferol (Vitamin D3) 25 MCG Tab PO SCH (08:12)
[2025-09-18] MEDS: Ketorolac 15 MG/ML SDV IVPUSH ONE ×2 (10:07→19:52)
[2025-09-19 06:08] LABS: PLATELET COUNT,PLT 283.0 K/uL (130-375); RED BLOOD CELL COUNT 3.0 M/uL (4.14-5.76); WHITE BLOOD CELL COUNT,WBC 11.1 K/uL (3.2-11.0)
[2025-09-19 06:35] LABS: BLOOD UREA NITROGEN,BUN 30.0 mg/dL (7-18); CARBON DIOXIDE,CO2 24.0 mmol/L (21-32); CHLORIDE,CL 104.0 mmol/L (100-108); CREATININE 2.1 mg/dL (0.8-1.3); EST CRCL DRUG DOSING (CG) 30.32 mL/min; ESTIMATED GFR 31.0 mL/min (>60); GLUCOSE RANDOM 103.0 mg/dL (74-106); POTASSIUM,K 4.3 mmol/L (3.6-5.2); SODIUM,NA 136.0 mmol/L (140-148)
[2025-09-19] MEDS: Ondansetron 4 MG Tab.DIS PO PRN (09:29)
[2025-09-19] MEDS ORDERED: Levofloxacin/Dextrose 5%-Water 750 MG in Premix Bag 1 BAG IV SCH (15:00)
[2025-09-20 05:51] LABS: PLATELET COUNT,PLT 278.0 K/uL (130-375); RED BLOOD CELL COUNT 3.04 M/uL (4.14-5.76); WHITE BLOOD CELL COUNT,WBC 7.4 K/uL (3.2-11.0)
[2025-09-20 06:09] LABS: BLOOD UREA NITROGEN,BUN 29.0 mg/dL (7-18); CARBON DIOXIDE,CO2 26.0 mmol/L (21-32); CHLORIDE,CL 107.0 mmol/L (100-108); CREATININE 2.1 mg/dL (0.8-1.3); EST CRCL DRUG DOSING (CG) 30.32 mL/min; ESTIMATED GFR 31.0 mL/min (>60); GLUCOSE RANDOM 98.0 mg/dL (74-106); POTASSIUM,K 4.7 mmol/L (3.6-5.2); SODIUM,NA 139.0 mmol/L (140-148)
[2025-09-21 05:11] VITALS: BP 145/55; PULSE 66
== END 2025-09-21 13:55 | disposition home or self-care (01) | DRG 698 ==
LOC: JP.ED 13:14 → JP.ICU 20:28
PROVIDERS: ADMIT Internal Medicine; ATTEND Internal Medicine
DX: T83.511A Infection and inflammatory reaction due to indwelling urethral catheter, initial encounter (principal); A41.9 Sepsis, unspecified organism; N39.0 Urinary tract infection, site not specified; Z88.5 Allergy status to narcotic agent; C61 Malignant neoplasm of prostate; H54.7 Unspecified visual loss; M54.9 Dorsalgia, unspecified; G89.29 Other chronic pain; M10.9 Gout, unspecified; E86.0 Dehydration; M19.90 Unspecified osteoarthritis, unspecified site; N18.31 Chronic kidney disease, stage 3a; E03.9 Hypothyroidism, unspecified; E61.1 Iron deficiency; Z96.659 Presence of unspecified artificial knee joint; Z90.49 Acquired absence of other specified parts of digestive tract; Z98.890 Other specified postprocedural states; Z88.8 Allergy status to other drugs, medicaments and biological substances; Z91.040 Latex allergy status; Z79.82 Long term (current) use of aspirin; Z86.718 Personal history of other venous thrombosis and embolism; Z86.711 Personal history of pulmonary embolism; Z79.899 Other long term (current) drug therapy; Z98.49 Cataract extraction status, unspecified eye
CPT/HCPCS: 36415; 71045 ×2; 74176 ×2; 80053; 81001; 82803; 83605; 83735; 84484; 85025; 87040 ×2; 87086; 87088; 87186; 87637; 93005; 96365; 96366; 96367; 99285; A9270 ×2; J0131; J1956; J7030; 80048; 85027; 93010; 97161-GP; 97530-GP; 99223; 99232; 99238; J0696; J1885; Q0162

== ENCOUNTER 2025-10-21 17:34 | Inpatient (IN) | payer MEDICARE ==
[2025-10-21 18:24] LABS: BASOPHILS ABSOLUTE AUTO 0.02 K/uL (0.00-0.10); BASOPHILS PERCENT AUTO 0.2 % (0.1-1.3); EOSINOPHILS ABSOLUTE AUTO 0.03 K/uL (0.00-0.40); EOSINOPHILS PERCENT AUTO 0.3 % (0.0-5.4); IMMATURE GRAN ABSOLUTE AUTO 0.04 K/uL (0.00-0.23); IMMATURE GRAN PERCENT AUTO 0.4 % (0.0-0.7); LYMPHOCYTES ABSOLUTE AUTO 0.79 K/uL (0.8-3.3); LYMPHOCYTES PERCENT AUTO 7.0 % (11.4-47.7); MONOCYTES ABSOLUTE AUTO 0.77 K/uL (0.20-0.90); MONOCYTES PERCENT AUTO 6.9 % (3.3-12.6); NEUTROPHILS ABSOLUTE AUTO 9.58 K/uL (1.0-7.6); NEUTROPHILS PERCENT AUTO 85.2 % (40.0-78.1); PLATELET COUNT,PLT 189 K/uL (130-375); RED BLOOD CELL COUNT 4.07 M/uL (4.14-5.76); WHITE BLOOD CELL COUNT,WBC 11.2 K/uL (3.2-11.0)
[2025-10-21 18:25] LABS: APPEARANCE,URINE TURBID (CLEAR); GLUCOSE,URINE NEGATIVE (NEGATIVE); OCCULT BLOOD,URINE LARGE (NEGATIVE)
[2025-10-21 18:30] LABS: SQUAMOUS EPITHELIAL CELLS,UR RARE /HPF
[2025-10-21 18:31] LABS: UROTHELIAL CELLS,URINE NOT SEEN /HPF
[2025-10-21 18:33] LABS: A/G RATIO 0.9 (1.2-2.2); ALANINE AMINOTRANSFERASE,ALT 21 U/L (12-78); ASPARTATE AMNIOTRANSFERASE,AST 21 U/L (15-37); BILIRUBIN TOTAL 1.6 mg/dL (0.2-1.0); BLOOD UREA NITROGEN,BUN 32 mg/dL (7-18); CARBON DIOXIDE,CO2 25 mmol/L (21-32); CHLORIDE,CL 103 mmol/L (100-108); CREATININE 2.1 mg/dL (0.8-1.3); EST CRCL DRUG DOSING (CG) 30.28 mL/min; ESTIMATED GFR 31 mL/min (>60); GLUCOSE RANDOM 114 mg/dL (74-106); POTASSIUM,K 4.2 mmol/L (3.6-5.2); PROTEIN TOTAL,TP 7.9 g/dL (6.4-8.2); SODIUM,NA 139 mmol/L (140-148)
[2025-10-21] MEDS ORDERED: Ondansetron 4 MG Tab.DIS PO PRN (21:59)
[2025-10-21] MEDS ORDERED: Magnesium Hydroxide 400 MG/5 ML Susp 30 ML Cup PO PRN (21:59)
[2025-10-21] MEDS ORDERED: Sennosides/Docusate Sodium 50-8.6 MG Tab PO PRN (21:59)
[2025-10-21] MEDS ORDERED: Ondansetron 4 MG/2 ML SDV IV PRN (21:59)
[2025-10-22 06:08] LABS: BASOPHILS ABSOLUTE AUTO 0.04 K/uL (0.00-0.10); BASOPHILS PERCENT AUTO 0.3 % (0.1-1.3); EOSINOPHILS ABSOLUTE AUTO 0.03 K/uL (0.00-0.40); EOSINOPHILS PERCENT AUTO 0.2 % (0.0-5.4); IMMATURE GRAN ABSOLUTE AUTO 0.07 K/uL (0.00-0.23); IMMATURE GRAN PERCENT AUTO 0.5 % (0.0-0.7); LYMPHOCYTES ABSOLUTE AUTO 0.95 K/uL (0.8-3.3); LYMPHOCYTES PERCENT AUTO 6.4 % (11.4-47.7); MONOCYTES ABSOLUTE AUTO 0.82 K/uL (0.20-0.90); MONOCYTES PERCENT AUTO 5.6 % (3.3-12.6); NEUTROPHILS ABSOLUTE AUTO 12.83 K/uL (1.0-7.6); NEUTROPHILS PERCENT AUTO 87.0 % (40.0-78.1); PLATELET COUNT,PLT 162 K/uL (130-375); RED BLOOD CELL COUNT 3.41 M/uL (4.14-5.76); WHITE BLOOD CELL COUNT,WBC 14.7 K/uL (3.2-11.0)
[2025-10-22 06:26] LABS: BLOOD UREA NITROGEN,BUN 33.0 mg/dL (7-18); CARBON DIOXIDE,CO2 24.0 mmol/L (21-32); CHLORIDE,CL 109.0 mmol/L (100-108); CREATININE 2.3 mg/dL (0.8-1.3); EST CRCL DRUG DOSING (CG) 27.65 mL/min; ESTIMATED GFR 28.0 mL/min (>60); GLUCOSE RANDOM 97.0 mg/dL (74-106); POTASSIUM,K 3.9 mmol/L (3.6-5.2); SODIUM,NA 142.0 mmol/L (140-148)
[2025-10-22] MEDS: Cholecalciferol (Vitamin D3) 25 MCG Tab PO SCH (08:54)
[2025-10-22] MEDS: Piperacillin/Tazobactam/Dext 4.5 GM in Premix Bag 1 BAG IV ONE (08:55)
[2025-10-22] MEDS: Piperacillin/Tazobactam/Dext 4.5 GM in Premix Bag 1 BAG IV SCH (13:09)
[2025-10-23 06:28] LABS: PLATELET COUNT,PLT 142.0 K/uL (130-375); RED BLOOD CELL COUNT 3.36 M/uL (4.14-5.76); WHITE BLOOD CELL COUNT,WBC 9.7 K/uL (3.2-11.0)
[2025-10-23 06:47] LABS: BLOOD UREA NITROGEN,BUN 30.0 mg/dL (7-18); CARBON DIOXIDE,CO2 23.0 mmol/L (21-32); CHLORIDE,CL 108.0 mmol/L (100-108); CREATININE 2.5 mg/dL (0.8-1.3); EST CRCL DRUG DOSING (CG) 25.44 mL/min; ESTIMATED GFR 25.0 mL/min (>60); GLUCOSE RANDOM 124.0 mg/dL (74-106); POTASSIUM,K 3.9 mmol/L (3.6-5.2); SODIUM,NA 140.0 mmol/L (140-148)
[2025-10-23] MEDS ORDERED: Ciprofloxacin in D5W 400 MG in Premix Bag 1 BAG IV SCH ×2 (12:30)
[2025-10-23] MEDS: Ciprofloxacin in D5W 400 MG in Premix Bag 1 BAG IV SCH (17:24)
[2025-10-24 05:59] LABS: BLOOD UREA NITROGEN,BUN 26.0 mg/dL (7-18); CARBON DIOXIDE,CO2 21.0 mmol/L (21-32); CHLORIDE,CL 109.0 mmol/L (100-108); CREATININE 2.1 mg/dL (0.8-1.3); EST CRCL DRUG DOSING (CG) 30.32 mL/min; ESTIMATED GFR 31.0 mL/min (>60); GLUCOSE RANDOM 87.0 mg/dL (74-106); POTASSIUM,K 4.2 mmol/L (3.6-5.2); SODIUM,NA 140.0 mmol/L (140-148)
[2025-10-24] MEDS: BICALUTAMIDE 50 MG PO SCH (08:14)
[2025-10-24] MEDS: Ciprofloxacin in D5W 400 MG in Premix Bag 1 BAG IV SCH (12:07)
[2025-10-25] MEDS ORDERED: Sodium Chloride 0.9% 10 ML Syringe IV PRN (10:30)
[2025-10-26 11:11] VITALS: BP 156/52; PULSE 62
== END 2025-10-26 11:40 | disposition home or self-care (01) | DRG 698 ==
LOC: JP.ED 17:34 → JP.MS 20:13
PROVIDERS: ADMIT Nurse Practitioner; ATTEND Internal Medicine
PROC: 3E03329 Introduction of Other Anti-infective into Peripheral Vein, Percutaneous Approach (ICD-10-PCS; principal; 2025-10-21)
PROC: 0T9B70Z Drainage of Bladder with Drainage Device, Via Natural or Artificial Opening (ICD-10-PCS; 2025-10-21)
DX: T83.593A Infection and inflammatory reaction due to other urinary stents, initial encounter (principal); A41.52 Sepsis due to Pseudomonas; N30.00 Acute cystitis without hematuria; N18.32 Chronic kidney disease, stage 3b; C61 Malignant neoplasm of prostate; H54.7 Unspecified visual loss; M19.90 Unspecified osteoarthritis, unspecified site; M10.9 Gout, unspecified; E03.9 Hypothyroidism, unspecified; Z96.0 Presence of urogenital implants; R33.8 Other retention of urine; Z96.659 Presence of unspecified artificial knee joint; Z79.2 Long term (current) use of antibiotics; Z79.890 Hormone replacement therapy; Z79.1 Long term (current) use of non-steroidal anti-inflammatories (NSAID); Z79.82 Long term (current) use of aspirin; Z79.899 Other long term (current) drug therapy; Z88.2 Allergy status to sulfonamides; Z88.8 Allergy status to other drugs, medicaments and biological substances; Z91.040 Latex allergy status; Z98.49 Cataract extraction status, unspecified eye; Z86.718 Personal history of other venous thrombosis and embolism; Z98.890 Other specified postprocedural states
CPT/HCPCS: 36415; 71045 ×2; 80053; 81001; 83605; 85025; 87040 ×2; 87086; 87088; 87186; 99285; A9270; J0696; J7030 ×2; 51702; 80048; 83735; 85027; 96361; 96365; 99223; 99232; 99238; J0744; J1650; J2543; J7040